=== PATIENT | male | born 1985 | race Caucasian/White ===

== ENCOUNTER 2018-01-13 16:59 | Emergency (ER) | payer MEDICAID, OTHER ==
[~2018-01-13] VITALS: Ht 170.2 cm; Wt 70.0 kg
[~2018-01-13 16:59] MED LIST: AM10 PO; OXCA300T4 PO; TRAM50TA94 PO
[2018-01-13 18:07] LABS: BASOPHILS % 0.9 % (0.0-2.0); EOSINOPHILS % 0.9 % (0.0-5.0); HEMATOCRIT. 50.9 % (42.0-52.0); HEMOGLOBIN. 17.4 g/dL (14.0-18.0); LYMPHOCYTES % 29.2 % (20.0-50.0); MEAN CORPUSCULAR HEMOGLOBIN 31.6 pg (28.0-32.0); MEAN CORPUSCULAR VOLUME 92.6 fL (80.0-94.0); MEAN PLATELET VOLUME 8.8 fl (7.4-10.4); MONOCYTES % 9.1 % (2.0-8.0); NEUTROPHILS % 59.9 % (40.0-76.0); PLATELET 302 x1000/uL (130-400); RED CELL DISTRIBUTION WIDTH 13.6 % (11.6-14.6)
[2018-01-13 18:09] LABS: CHLORIDE 103 mEq/L (98-107)
[2018-01-13] MEDS ORDERED: LORAZEPAM 2MG/ML CPJ IV PRN (18:45)
[2018-01-13] MEDS ORDERED: SODIUM CHLORIDE 0.9% 1,000 ML IV ONE (18:45)
[2018-01-13 19:04] LABS: CLARITY URINE CLEAR (CLEAR); COLOR URINE YELLOW (YELLOW); KETONES URINE NEGATIVE (NEGATIVE); LEUKOCYTE ESTERASE URINE NEGATIVE (NEGATIVE); NITRITE URINE NEGATIVE (NEGATIVE); OCCULT BLOOD URINE NEGATIVE (NEGATIVE); PROTEIN URINE NEGATIVE (NEGATIVE); SPECIFIC GRAVITY URINE 1.031 (1.005-1.030); UROBILINOGEN URINE 0.2 E.U./dL (0.2-1.0)
[2018-01-13] MEDS ORDERED: GABAPENTIN 300MG CAPSULE PO ONE (19:15)
[2018-01-13] MEDS ORDERED: LEVETIRACETAM 500MG TABLET PO ONE (19:15)
[2018-01-13 20:38] VITALS: BP 127/77
== END 2018-01-13 20:51 | disposition home or self-care (01) ==
LOC: ER 17:08
DX: R56.9 Unspecified convulsions (principal); Z88.8 Allergy status to other drugs, medicaments and biological substances
CPT/HCPCS: 36415; 80053; 81003; 82542; 85025; 93005; 96360; 96361; 99285; J7030; Z7610

== ENCOUNTER 2018-02-10 12:13 | Emergency (ER) | payer MEDICAID ==
[~2018-02-10] VITALS: Ht 175.3 cm; Wt 70.0 kg
[2018-02-10] MEDS ORDERED: KEPP500 PO (12:17)
[2018-02-10] MEDS ORDERED: ONDANSETRON HCL 4MG/2ML VIAL IV ONE ×2 (13:30→14:30)
[2018-02-10] MEDS ORDERED: KETOROLAC 30MG/ML VIAL IV ONE (13:30)
[2018-02-10 13:53] LABS: BASOPHILS % 0.5 % (0.0-2.0); EOSINOPHILS % 0.2 % (0.0-5.0); HEMATOCRIT. 46.1 % (42.0-52.0); HEMOGLOBIN. 15.9 g/dL (14.0-18.0); LYMPHOCYTES % 13.2 % (20.0-50.0); MEAN CORPUSCULAR HEMOGLOBIN 31.9 pg (28.0-32.0); MEAN CORPUSCULAR VOLUME 92.5 fL (80.0-94.0); MONOCYTES % 4.5 % (2.0-8.0); NEUTROPHILS % 81.6 % (40.0-76.0); PLATELET 311 x1000/uL (130-400); RED BLOOD CELL COUNT 4.98 mill/uL (4.7-6.1); RED CELL DISTRIBUTION WIDTH 13.2 % (11.6-14.6)
[2018-02-10 13:59] LABS: CLARITY URINE CLEAR (CLEAR); COLOR URINE YELLOW (YELLOW); KETONES URINE NEGATIVE (NEGATIVE); LEUKOCYTE ESTERASE URINE NEGATIVE (NEGATIVE); NITRITE URINE NEGATIVE (NEGATIVE); OCCULT BLOOD URINE NEGATIVE (NEGATIVE); PH URINE 7.5 (4.5-8.0); PROTEIN URINE NEGATIVE (NEGATIVE); SPECIFIC GRAVITY URINE 1.011 (1.005-1.030); UROBILINOGEN URINE 0.2 E.U./dL (0.2-1.0)
[2018-02-10 14:00] LABS: CHLORIDE 107 mEq/L (98-107)
[2018-02-10 14:01] LABS: PROTHROMBIN TIME 10.2 sec (9.4-11.6)
[2018-02-10 15:46] VITALS: BP 133/71
== END 2018-02-10 15:49 | disposition home or self-care (01) ==
LOC: ER 12:19
DX: R10.84 Generalized abdominal pain (principal); K22.6 Gastro-esophageal laceration-hemorrhage syndrome; G40.909 Epilepsy, unspecified, not intractable, without status epilepticus; Z88.8 Allergy status to other drugs, medicaments and biological substances; Z90.49 Acquired absence of other specified parts of digestive tract
CPT/HCPCS: 36415; 74176; 80053; 81003; 83690; 85025; 85610; 96374; 96375; 96376; 99285; J1885; J2405

== ENCOUNTER 2021-04-11 15:52 | Emergency (ER) | payer MEDICAID ==
[~2021-04-11] VITALS: Ht 172.7 cm; Wt 75.0 kg
[~2021-04-11 15:52] MED LIST changes: -AM10 PO; +AMIT10TA7 PO; +KEPP500 PO
[2021-04-11] MEDS ORDERED: ONDANSETRON HCL 4MG/2ML INJ IV STA (17:12)
[2021-04-11] MEDS ORDERED: ACETAMINOPHEN 325MG TABLET PO STA (17:12)
[2021-04-11] MEDS ORDERED: VISCOUS LIDOCAINE 2% 15 ML UDC PO STA (17:12)
[2021-04-11] MEDS ORDERED: MAGNESIUM/ALUMINUM HYDROXIDE/SIMETHICONE 30ML UDC PO STA (17:12)
[2021-04-11] MEDS ORDERED: SODIUM CHLORIDE 0.9% 1,000 ML IV ONE (17:15)
[2021-04-11 18:04] LABS: BASOPHILS % 0.5 % (0.0-2.0); EOSINOPHILS % 0.8 % (0.0-5.0); HEMATOCRIT. 51.3 % (42.0-52.0); HEMOGLOBIN. 17.7 g/dL (14.0-18.0); LYMPHOCYTES % 14.4 % (20.0-50.0); MEAN CORPUSCULAR HEMOGLOBIN 31.3 pg (28.0-32.0); MEAN CORPUSCULAR VOLUME 91.1 fL (80.0-94.0); MEAN PLATELET VOLUME 8.8 fl (7.4-10.4); MONOCYTES % 9.5 % (2.0-8.0); NEUTROPHILS % 74.8 % (40.0-76.0); PLATELET 347 x1000/uL (130-400); RED BLOOD CELL COUNT 5.63 mill/uL (4.7-6.1)
[2021-04-11 18:07] LABS: CHLORIDE 104 mEq/L (98-107)
[2021-04-11 18:11] LABS: ETHANOL BLOOD < 10 mg/dL
[2021-04-11 19:11] VITALS: BP 125/78
== END 2021-04-11 19:11 ==
LOC: ER 16:19
DX: R10.31 Right lower quadrant pain (principal); R11.10 Vomiting, unspecified; E86.0 Dehydration; Z88.8 Allergy status to other drugs, medicaments and biological substances; Z79.899 Other long term (current) drug therapy
CPT/HCPCS: 36415; 71045; 80053; 80320; 83690; 85025; 96361; 96374; 99284; A4217; J2405; J7030; Z7610; G0480

== ENCOUNTER 2021-07-22 00:58 | Emergency (ER) | payer MEDICAID ==
[~2021-07-22] VITALS: Ht 172.7 cm; Wt 80.0 kg
[2021-07-22] MEDS ORDERED: KETOROLAC 30MG/ML VIAL IM ONE (02:30)
[2021-07-22] MEDS ORDERED: SODIUM CHLORIDE 0.9% 1,000 ML IV ONE (03:15)
[2021-07-22] MEDS ORDERED: PANTOPRAZOLE SODIUM 40 MG/VIAL IV ONE (03:15)
[2021-07-22] MEDS ORDERED: ONDANSETRON HCL 4MG/2ML INJ IV ONE (03:15)
[2021-07-22 03:26] LABS: BASOPHILS % 0.4 % (0.0-2.0); EOSINOPHILS % 0.6 % (0.0-5.0); HEMATOCRIT. 42.6 % (42.0-52.0); HEMOGLOBIN. 14.3 g/dL (14.0-18.0); LYMPHOCYTES % 10.8 % (20.0-50.0); MEAN CORPUSCULAR HEMOGLOBIN 31.4 pg (28.0-32.0); MEAN CORPUSCULAR VOLUME 93.4 fL (80.0-94.0); MEAN PLATELET VOLUME 8.8 fl (7.4-10.4); MONOCYTES % 7.4 % (2.0-8.0); NEUTROPHILS % 80.8 % (40.0-76.0); PLATELET 229 x1000/uL (130-400); RED BLOOD CELL COUNT 4.56 mill/uL (4.7-6.1); RED CELL DISTRIBUTION WIDTH 13.7 % (11.6-14.6)
[2021-07-22 03:33] LABS: CHLORIDE 107 mEq/L (98-107)
[2021-07-22 03:37] LABS: ETHANOL BLOOD < 10 mg/dL
[2021-07-22 03:55] VITALS: BP 118/66
== END 2021-07-22 05:01 | disposition left against medical advice (07) ==
LOC: ER 00:58
DX: R10.9 Unspecified abdominal pain (principal); Z88.8 Allergy status to other drugs, medicaments and biological substances; Z98.890 Other specified postprocedural states
CPT/HCPCS: 36415; 80053; 80320; 83690; 85025; 99284; J7030; J1885; G0480

== ENCOUNTER 2022-10-13 14:03 | Emergency (ER) | payer MEDICAID ==
[~2022-10-13] VITALS: Ht 170.2 cm; Wt 78.0 kg
[2022-10-13] MEDS ORDERED: ONDANSETRON HCL 4MG/2ML INJ IV STA (14:40)
[2022-10-13] MEDS ORDERED: SODIUM CHLORIDE 0.9% 1,000 ML IV ONE (14:45)
[2022-10-13 15:00] VITALS: BP 126/96
[2022-10-13 15:16] LABS: BASOPHILS % 0.4 % (0.0-2.0); EOSINOPHILS % 0.5 % (0.0-5.0); HEMATOCRIT. 35.4 % (42.0-52.0); HEMOGLOBIN. 11.9 g/dL (14.0-18.0); LYMPHOCYTES % 11.6 % (20.0-50.0); MEAN CORPUSCULAR HEMOGLOBIN 30.5 pg (28.0-32.0); MEAN CORPUSCULAR VOLUME 90.5 fL (80.0-94.0); MEAN PLATELET VOLUME 7.5 fl (7.4-10.4); MONOCYTES % 6.5 % (2.0-8.0); PLATELET 521 x1000/uL (130-400); RED BLOOD CELL COUNT 3.91 mill/uL (4.7-6.1); RED CELL DISTRIBUTION WIDTH 13.5 % (11.6-14.6)
[2022-10-13 15:24] LABS: CHLORIDE 102 mEq/L (98-107)
[2022-10-13 15:32] LABS: ETHANOL BLOOD < 10 mg/dL
== END 2022-10-13 18:45 | disposition home or self-care (01) ==
LOC: ER 14:03
DX: T40.411A Poisoning by fentanyl or fentanyl analogs, accidental (unintentional), initial encounter (principal); I49.9 Cardiac arrhythmia, unspecified; Y92.9 Unspecified place or not applicable; Z88.8 Allergy status to other drugs, medicaments and biological substances; Z98.890 Other specified postprocedural states
CPT/HCPCS: 36415; 80053; 80307; 80320; 80329; 85025; 93005; 96361; 96374; 99284; J2405; J7030; G0480

== ENCOUNTER 2023-12-07 19:12 | Emergency (ER) | payer MEDICAID ==
[~2023-12-07] VITALS: Ht 172.7 cm; Wt 79.0 kg
[~2023-12-07 19:12] MED LIST changes: +IBUP-2029 MT; +SILV20CR13 TP
[2023-12-07 19:29] VITALS: BP 122/60; PULSE 115; RESP 20; TEMP 99.9; O2SAT 100
[2023-12-07] MEDS ORDERED: IBUPROFEN 600MG TABLET PO STA (19:30)
[2023-12-07] MEDS ORDERED: ONDANSETRON 4MG ODT PO STA (19:30)
== END 2023-12-07 20:48 | disposition left against medical advice (07) ==
LOC: ER 19:12
DX: R11.2 Nausea with vomiting, unspecified (principal); Z00.00 Encounter for general adult medical examination without abnormal findings; Z88.8 Allergy status to other drugs, medicaments and biological substances; Z79.899 Other long term (current) drug therapy
CPT/HCPCS: 99283